=== PATIENT | female | born 1985 | race Asian ===

== ENCOUNTER 2017-04-30 10:48 | Inpatient (IN) | payer BC ==
[2017-04-30 12:00] LABS: ABS Basophils 0.1 10^3/ul (0-0.2); ABS Eosinophils 0.1 10^3/ul (0-0.6); ABS Lymphocytes 1.3 10^3/ul (1.0-4.8); ABS Monocytes 0.7 10^3/ul (0-0.8); ABS Nucleated RBC 0 10^3/ul; Eosinophil % 1.1 % (0-6); Hematocrit 38 % (35-47); Hemoglobin 12.7 g/dl (12.0-16.0); Mean Corpuscular HGB Conc 33 g/dl (31-36); Mean Corpuscular Hemoglobin 32 pg (27-31); Mean Corpuscular Volume 96 fL (80-97); Mean Platelet Volume 10 um3 (7.4-10.4); Nucleated Red Blood Cells % 0; Platelet Count 145 10^3/ul (150-450); Red Blood Count 3.97 10^6/ul (4.0-5.4); Red Cell Distribution Width 14 % (10.5-15); White Blood Count 11.2 10^3/ul (3.5-10.8)
[2017-04-30] MEDS ORDERED: Oxytocin in LR* 20 UNITS/1,000 ML BAG IVPB ONE (12:48)
[2017-04-30] MEDS ORDERED: Glycerin ADULT SUPP PR PRN (13:21)
[2017-04-30] MEDS ORDERED: Acetaminophen TAB* 325 MG PO PRN (13:21)
[2017-04-30] MEDS: Ibuprofen TAB* 600 MG PO PRN ×2 (13:49→20:09)
[2017-04-30] MEDS: Docusate CAP* 100 MG PO SCH ×2 (15:06→20:09)
[2017-04-30] MEDS ORDERED: Ampicillin IV* 2 GM in NS 0.9% 100 ML* 100 ML IVPB ONE (15:15)
[2017-04-30] MEDS ORDERED: Simethicone TAB* 80 MG TAB.CHEW PO SCH (17:30)
[2017-04-30] MEDS: Witch Hazel PAD* JAR TOPICAL PRN (20:10)
[2017-04-30] MEDS: Dibucaine 1% 28.35 GM TUBE PR PRN (20:10)
[2017-05-01] MEDS: Ibuprofen TAB* 600 MG PO PRN ×3 (03:44→20:13)
[2017-05-01 06:52] LABS: ABS Basophils 0 10^3/ul (0-0.2); ABS Eosinophils 0.2 10^3/ul (0-0.6); ABS Lymphocytes 1.8 10^3/ul (1.0-4.8); ABS Monocytes 0.8 10^3/ul (0-0.8); ABS Neutrophils 9.8 10^3/ul (1.5-7.7); ABS Nucleated RBC 0 10^3/ul; Eosinophil % 1.3 % (0-6); Hematocrit 33 % (35-47); Hemoglobin 11.4 g/dl (12.0-16.0); Lymphocyte % 14.4 % (25-47); Mean Corpuscular HGB Conc 35 g/dl (31-36); Mean Corpuscular Hemoglobin 33 pg (27-31); Mean Corpuscular Volume 94 fL (80-97); Mean Platelet Volume 9 um3 (7.4-10.4); Nucleated Red Blood Cells % 0; Platelet Count 103 10^3/ul (150-450); Red Cell Distribution Width 14 % (10.5-15); White Blood Count 12.6 10^3/ul (3.5-10.8)
[2017-05-01] MEDS: Ferrous Gluconate TAB* 324 MG TAB PO SCH ×2 (12:16→22:01)
[2017-05-01] MEDS: Docusate CAP* 100 MG PO SCH ×3 (12:17→23:17)
[2017-05-01] MEDS: Witch Hazel PAD* JAR TOPICAL PRN (15:38)
[2017-05-01] MEDS: Dibucaine 1% 28.35 GM TUBE PR PRN (15:39)
[2017-05-02 06:46] LABS: ABS Basophils 0.1 10^3/ul (0-0.2); ABS Eosinophils 0.1 10^3/ul (0-0.6); ABS Lymphocytes 2.2 10^3/ul (1.0-4.8); ABS Monocytes 0.5 10^3/ul (0-0.8); ABS Neutrophils 7.5 10^3/ul (1.5-7.7); ABS Nucleated RBC 0 10^3/ul; Eosinophil % 1.3 % (0-6); Hematocrit 34 % (35-47); Hemoglobin 11.8 g/dl (12.0-16.0); Lymphocyte % 20.8 % (25-47); Mean Corpuscular HGB Conc 35 g/dl (31-36); Mean Corpuscular Hemoglobin 33 pg (27-31); Mean Corpuscular Volume 95 fL (80-97); Mean Platelet Volume 9 um3 (7.4-10.4); Nucleated Red Blood Cells % 0; Platelet Count 115 10^3/ul (150-450); Red Blood Count 3.62 10^6/ul (4.0-5.4); Red Cell Distribution Width 14 % (10.5-15); White Blood Count 10.4 10^3/ul (3.5-10.8)
[2017-05-02 08:54] VITALS: BP 100/72
[2017-05-02] MEDS: Docusate CAP* 100 MG PO SCH (10:16)
== END 2017-05-02 10:50 | disposition home or self-care (01) | DRG 560 ==
LOC: MCHOBOUT 10:48 → MCHOB 11:28
PROVIDERS: ADMIT Midwife; ATTEND Midwife
PROC: 10E0XZZ Delivery of Products of Conception, External Approach (ICD-10-PCS; principal; 2017-04-30)
PROC: 0KQM0ZZ Repair Perineum Muscle, Open Approach (ICD-10-PCS; 2017-04-30)
DX: O69.81X0 Labor and delivery complicated by cord around neck, without compression, not applicable or unspecified (principal); O70.1 Second degree perineal laceration during delivery; Z3A.40 40 weeks gestation of pregnancy; Z37.0 Single live birth
CPT/HCPCS: 36415; 85025; 86850; 86900; 86901; A9270-GY; J0290

== ENCOUNTER 2017-05-16 20:29 | Day surgery (SDC) | payer BC ==
[2017-05-16] MEDS ORDERED: NS 0.9% 1000 ML* 1,000 ML IV ONE (21:16)
--- NOTE | 2017-05-16 21:56 | RAD ---
Indication: Vaginal bleeding 2 weeks . Comparison: No relevant prior exams available on the [facility] PACS for comparison. Technique: Transabdominal pelvic ultrasound. Report: 11.6 x 7.9 x 9.6 cm anteverted uterus with irregularly thickened heterogeneous echogenicity endometrium at the fundus measuring up to 2.1 cm in thickness with foci of intrinsic vascularity on Doppler concerning for retained products of conception. Trace free fluid in the cul-de-sac. 3.3 x 1.5 x 3.5 cm RIGHT ovary and 2.5 x 1.9 x 3.3 cm LEFT ovary with documented vascular flow on color Doppler are unremarkable. No extraovarian adnexal region lesions evident. IMPRESSION: Findings concerning for retained product of conception.
[2017-05-16 22:07] LABS: ABS Basophils 0 10^3/ul (0-0.2); ABS Eosinophils 0.4 10^3/ul (0-0.6); ABS Lymphocytes 2.3 10^3/ul (1.0-4.8); ABS Monocytes 0.4 10^3/ul (0-0.8); ABS Neutrophils 4.3 10^3/ul (1.5-7.7); ABS Nucleated RBC 0 10^3/ul; Eosinophil % 4.8 % (0-6); Hematocrit 34 % (35-47); Hemoglobin 11.6 g/dl (12.0-16.0); Lymphocyte % 30.7 % (25-47); Mean Corpuscular HGB Conc 34 g/dl (31-36); Mean Corpuscular Hemoglobin 33 pg (27-31); Mean Corpuscular Volume 95 fL (80-97); Mean Platelet Volume 8 um3 (7.4-10.4); Nucleated Red Blood Cells % 0; Platelet Count 182 10^3/ul (150-450); Red Blood Count 3.57 10^6/ul (4.0-5.4); Red Cell Distribution Width 14 % (10.5-15); White Blood Count 7.3 10^3/ul (3.5-10.8)
[2017-05-16 22:19] LABS: INR 0.88 (0.77-1.02)
[2017-05-16 22:21] LABS: EGFR Non-African American 87.4 (>60)
[2017-05-17] MEDS ORDERED: ceFAZolin 2 GM PREMIX (*) 2 GM/50 ML BAG IVPB ONE (00:28)
[2017-05-17] MEDS ORDERED: Silver Nitrate/Potassium Nitr* 1 EA STICK ONE (00:32)
--- NOTE | 2017-05-17 00:32 | ED ---
Sinan Cifuentes Tecjoon, scribbob for Corwin Tao MD on 05/16/17 at 2118 . GI/ HPI - HPI Summary HPI Summary: This patient is a 32 year old female presenting to [facility] accompanied by with a chief complaint of vaginal bleeding since yesterday around 1900. Patient delivered a baby vaginally 2 weeks ago. The pain is described as cramping. The pain is rated 0/10 in severity. Symptoms aggravated by nothing. Symptoms alleviated by nothing. Patient states she has filled 4 pads with fresh blood and clots. Patient additionally reports abd pain. Patient denies fever, chills, dizziness. - History of Current Complaint Chief Complaint: EDVaginalBleeding Time Seen by Provider: 05/16/17 21:07 Stated Complaint: VAGINAL BLEEDING Hx Obtained From: Patient Onset/Duration: Started Days Ago - 1, Still Present Timing: Constant, Lasting Hours Severity: Mild Vaginal Bleeding Description: Bright Red, Clots Number of Pads per Day: 4 Pain Intensity: 0 Location of Pain: Diffuse Pain Characteristics: Cramping Associated Signs and Symptoms: Positive: Negative - fever, chills, dizziness, Other: - abd pain - Allergy/Home Medications Allergies/Adverse Reactions: Allergies Allergy/AdvReac Type Severity Reaction Status Date / Time No Known Allergies Allergy Verified 04/30/17 15:31 PMH/Surg Hx/FS Hx/Imm Hx Previously Healthy: Yes Opthamlomology History: Denies: Hx Legally Blind EENT History: Denies: Hx Deafness Infectious Disease History: No Infectious Disease History: Denies: Traveled Outside the [place] in Last 30 Days - Family History Known Family History: Negative: Hypertension - Social History Lives: With Family Alcohol Use: None Hx Substance Use: No Substance Use Type: Reports: None Hx Tobacco Use: No Smoking Status (MU): Never Smoked Tobacco Review of Systems Negative: Fever, Chills Positive: Abdominal Pain Genitourinary: Other - vaginal bleeding Neurological: Negative - dizziness All Other Systems Reviewed And Are Negative: Yes Physical Exam - Summary Physical Exam Summary: VITAL SIGNS: Reviewed. GENERAL: Patient is a well-developed and nourished female who is lying comfortable in the stretcher. Patient is not in any acute respiratory distress. HEAD AND FACE: No signs of trauma. No ecchymosis, hematomas or skull depressions. No sinus tenderness. EYES: PERRLA, EOMI x 2, No injected conjunctiva, no nystagmus. EARS: Hearing grossly intact. Ear canals and tympanic membranes are within normal limits. MOUTH: Oropharynx within normal limits. NECK: Supple, trachea is midline, no adenopathy, no JVD, no carotid bruit, no c- spine tenderness, neck with full ROM. CHEST: Symmetric, no tenderness at palpation LUNGS: Clear to auscultation bilaterally. No wheezing or crackles. CVS: Regular rate and rhythm, S1 and S2 present, no murmurs or gallops appreciated. ABDOMEN: Soft, non-tender. No signs of distention. No rebound no guarding, and no masses palpated. Bowel sounds are normal. EXTREMITIES: FROM in all major joints, no edema, no cyanosis or clubbing. PELVIC: External genitalia normal. Mild to moderate vaginal bleeding. Cervix is open, about 2 cm posteriorly. Uterus is about 12 weeks NEURO: Alert and oriented x 3. No acute neurological deficits. Speech is normal and follows commands. SKIN: Dry and warm Triage Information Reviewed: Yes Vital Signs On Initial Exam: Initial Vitals Temp Pulse Resp BP Pulse Ox 99.0 F 78 16 122/75 96 05/16/17 20:33 05/16/17 20:33 05/16/17 20:33 05/16/17 20:33 05/16/17 20:33 Vital Signs Reviewed: Yes Diagnostics - Vital Signs Vital Signs Temp Pulse Resp BP Pulse Ox 05/16/17 20:33 99.0 F 78 16 122/75 96 - Laboratory Result Diagrams: 05/16/17 21:57 05/16/17 21:57 Lab Statement: Any lab studies that have been ordered have been reviewed, and results considered in the medical decision making process. - Additional Comments Diagnostic Additional Comments: US Pelvis reveals, per radiologist, IMPRESSION: Findings concerning for retained product of conception. ED physician has reviewed this radiology report. GIGU Course/Dx - Course Course Of Treatment: This patient is a 32 year old female presenting to [facility] accompanied by with a chief complaint of vaginal bleeding since yesterday around 1900. Patient delivered a baby vaginally 2 weeks ago. US Pelvis reveals, per radiologist, IMPRESSION: Findings concerning for retained product of conception. ED physician has reviewed this radiology report. Bloodwork Obtained. Urinalysis Obtained. We discussed patient care with Dr. Mariscal (OBGYN) and they agreed to come see the patient. Patient will be admitted with a diagnosis of bleeding and retained product of conception. The patient is agreeable with this plan. - Diagnoses Provider Diagnoses: bleeding, Retained products of conception - Physician Notifications Instructed by Provider To: Admit As Inpatient - We discussed patient care with Dr. Mariscal (OBGYN) at 2242 and they agreed to come see the patient with regards to admittance Discharge - Discharge Plan Condition: Stable Disposition: ADMITTED TO [facility] Referrals: Bronwyn Brown CNM [Primary Care Provider] - The documentation as recorded by the Sinan posadas Tecjoon accurately reflects the service I personally performed and the decisions made by Aislinn evangelista Abdul, MD.
[2017-05-17] MEDS ORDERED: fentaNYL* 50 MCG/ML 2 ML VIAL (100 MCG VIAL) ONE (00:36)
[2017-05-17] MEDS ORDERED: Chloroprocaine 2%* 20 ML VIAL ONE (00:37)
[2017-05-17] MEDS ORDERED: Lidocaine 2% PF * 5 ML VIAL ONE (00:37)
[2017-05-17] MEDS ORDERED: Propofol* 10 MG/ML 20 ML BTL IV PUSH ONE (00:37)
[2017-05-17] MEDS ORDERED: OXYTOCIN* 10 UNITS/ML 1 ML VIAL ONE (01:10)
[2017-05-17] MEDS ORDERED: Naloxone* 0.4 MG/ML 1 ML VIAL IV PRN (01:30)
[2017-05-17] MEDS ORDERED: Ketorolac INJ* 30 MG/ML 1 ML VIAL IV PRN (01:30)
[2017-05-17] MEDS ORDERED: Ketorolac INJ* 30 MG/ML 1 ML VIAL ONE (01:45)
[2017-05-17 03:01] VITALS: BP 103/67
--- NOTE | 2017-05-18 12:16 | OP ---
DATE OF OPERATION: 05/17/17 [facility] [place] DATE OF : 87 SURGEON: Almaz Mariscal MD. ANESTHESIOLOGIST: Dr. Fraser. ANESTHESIA: Spinal. PRE-OP DIAGNOSIS: Two weeks post- with bleeding and retained placenta fragment. POST-OP DIAGNOSIS: Two weeks post- with bleeding and retained placenta fragment. OPERATIVE PROCEDURE: Suction dilation and curettage with ultrasound guidance. ESTIMATED BLOOD LOSS: 100 cc. URINE OUTPUT: 200 cc. IV FLUIDS: 300 cc lactated Ringer's. MATERIALS TO LAB: Placental fragment. INDICATIONS: This patient was a 32-year-old 1, para 1 at 16 days status post a spontaneous vaginal delivery on April 30. The patient had a delivery complicated by difficulty with placental delivery and cord avulsion requiring manual extraction of the placenta. The patient had a progressive decrease in bleeding over the last 2 weeks; however, last night she had return of heavy bleeding which lasted several hours. Throughout the day it became light again but then tonight it became very heavy and she returned to the emergency department at that time. Ultrasound was significant for a 2.1 cm echogenic area at the fundus of the uterus consistent with likely retained products of conception. She was extensively counselled regarding the findings, and I recommended a dilation and curettage. The patient signed consent. FINDINGS: Small area of apparent placental tissue in the upper fundus of the uterus. Ultrasound during the procedure noted complete removal of this tissue and a thin endometrial lining afterwards. COMPLICATIONS: None. DESCRIPTION OF PROCEDURE: The risks, benefits, and alternatives were described to the patient and informed consent was obtained. The patient was taken to the operating room with IV running where spinal anesthesia was induced and found to be adequate. The patient was prepped and draped in the normal sterile fashion in the high lithotomy position in [facility]. Time out was performed. The bladder was emptied. An abdominal ultrasound was performed initially and the echogenic material was easily visualized. A bivalve speculum was placed in the vagina and a ring forceps was placed on the anterior cervix for retraction. The cervix was already dilated about 2 cm. The uterus then sounded to about 12 cm and the sound was easily visualized on ultrasound. A size 10 suction curette was then prepared and placed through the cervix and into the uterine cavity without difficulty. Again this was done with ultrasound guidance. Suction was activated and all uterine contents were suctioned without difficulty. The suction curette was then removed. A medium banjo curette was then placed into the fundus and all 4 quadrants of the uterine cavity were palpated with the curette and good cry was noted. There was no apparent remaining tissue. The ultrasound also noted no significant remaining tissue at that time. The ring forceps was removed from the cervix. The speculum was then removed. Bimanual massage was performed and the uterus became very firm. Pitocin was also given in the IV. The patient was then returned to the supine position. The patient tolerated the procedure well. Sponge, lap, and needle counts were correct x2. [id number]/[facility] #: [id number] MTDD
== END 2017-05-17 03:12 | disposition home or self-care (01) ==
LOC: ED 20:29 → OR 05-17 00:14
PROVIDERS: ATTEND Obstetrics & Gynecology
DX: O72.2 Delayed and secondary postpartum hemorrhage (principal); N94.89 Other specified conditions associated with female genital organs and menstrual cycle
CPT/HCPCS: 36415; 76856; 80053; 83605; 84702; 85025; 85610; 85730; 86850; 86900; 86901; 88305; 99283; A9270-GY; J0690; J1885; J2400; J2590; J2704; J3010

== ENCOUNTER 2017-07-14 12:18 | Emergency (ER) | payer BC ==
[2017-07-14 13:09] LABS: Hematocrit 38 % (35-47); Hemoglobin 12.9 g/dl (12.0-16.0); Mean Corpuscular HGB Conc 34 g/dl (31-36); Mean Corpuscular Hemoglobin 32 pg (27-31); Mean Corpuscular Volume 93 fL (80-97); Mean Platelet Volume 8.4 um3 (7.4-10.4); Platelet Count 203 10^3/ul (150-450); Red Blood Count 4.09 10^6/ul (4.0-5.4); Red Cell Distribution Width 13 % (10.5-15); White Blood Count 5.7 10^3/ul (3.5-10.8)
[2017-07-14 13:16] LABS: Urine Appearance Clear; Urine Blood Negative (Negative); Urine Color Yellow; Urine Ketones 2+ (Negative); Urine Protein Negative (Negative); Urine Specific Gravity 1.019 (1.010-1.030); Urine Urobilinogen Negative (Negative)
[2017-07-14] MEDS ORDERED: Al Hydrox/Mg Hydrox/Simet LIQ* 30 ML UDC PO ONE (13:37)
[2017-07-14] MEDS ORDERED: Lidocaine 2% VISCOUS* 15 ML UDC PO ONE (13:37)
[2017-07-14] MEDS ORDERED: NS 0.9% 1000 ML* 1,000 ML IV ONE (13:45)
[2017-07-14] MEDS ORDERED: Famotidine TAB* 20 MG PO ONE (15:19)
[2017-07-14 18:21] VITALS: BP 103/60
--- NOTE | 2017-07-16 10:54 | ED ---
Yuliana Cifuentes Julia, scribed for Jose Ortega MD on 07/14/17 at 1324 . Abdominal Pain/Female - HPI Summary HPI Summary: This patient is a 32 year old F presenting to [facility] accompanied by her with a chief complaint of worsening epigstric abdominal pain for the past six days. Patient reports fever, chills, vomiting, and two BM described was loose and watery with onset of symptoms on 07/09/17 that resolved 07/11/17. She is unsure if the there was blood in her vomit. Vomiting has resolved but epigastric pain has persisted, worsening in the evenings. She has not had BM since initial watery stool. Pt reports decrease PO intake over the past couple days. The patient rates the pain 4/10 in severity during the day, and a 7/10 at night. Symptoms aggravated by eating and lying down. Symptoms unrelieved by antacid medication. Patient was sent from [facility] for further evaluation. Patient gave to her first child in April 2017. She had surgery for a retained placenta. - History of Current Complaint Chief Complaint: EDAbdPain Stated Complaint: ABD PAIN-SENT FROM [facility] Hx Obtained From: Patient Onset/Duration: Sudden Onset, Lasting Days, Still Present Timing: Constant Severity Initially: Moderate Severity Currently: Mild Pain Intensity: 4 Pain Scale Used: 0-10 Numeric Location: Epigastric Radiates: No Aggravating Factor(s): Food, Other: - lying down Alleviating Factor(s): Nothing Associated Signs and Symptoms: Positive: Diaphoresis, Decreased Appetite, Nausea , Vomiting, Diarrhea. Negative: Urinary Symptoms Allergies/Adverse Reactions: Allergies Allergy/AdvReac Type Severity Reaction Status Date / Time No Known Allergies Allergy Verified 07/14/17 12:22 PMH/Surg Hx/FS Hx/Imm Hx Respiratory History: Reports: Hx Seasonal Allergies Sensory History: Denies: Hx Legally Blind, Hx Deafness Opthamlomology History: Denies: Hx Legally Blind EENT History: Denies: Hx Deafness - Surgical History Surgery Procedure, Year, and Place: removal of retain placenta, April 2017 - Immunization History Date of Tetanus Vaccine: utd Date of Influenza Vaccine: unk Infectious Disease History: No Infectious Disease History: Denies: Traveled Outside the [place] in Last 30 Days - Family History Known Family History: Negative: Hypertension - Social History Lives: With Family Alcohol Use: None Hx Substance Use: No Substance Use Type: Reports: None Hx Tobacco Use: No Smoking Status (MU): Never Smoked Tobacco Review of Systems Positive: Fever, Chills Negative: Erythema Negative: Sore Throat Negative: Chest Pain Negative: Shortness Of Breath, Cough Positive: Abdominal Pain, Vomiting, Diarrhea, Nausea Negative: dysuria, hematuria Negative: Myalgia, Edema Negative: Rash Neurological: Negative - dizziness All Other Systems Reviewed And Are Negative: Yes Physical Exam - Summary Physical Exam Summary: Constitutional: Well-developed, Well-nourished, Alert. (-) Distressed Skin: Warm, Dry HENT: Normocephalic; Atraumatic Eyes: Conjunctiva normal Neck: Musculoskeletal ROM normal neck. (-) JVD, (-) Stridor, (-) Tracheal deviation Cardio: Rhythm regular, rate normal, Heart sounds normal; Intact distal pulses; The pedal pulses are 2+ and symmetric. Radial pulses are 2+ and symmetric. (-) Murmur Pulmonary/Chest wall: Effort normal. (-) Respiratory distress, (-) Wheezes, (-) Rales Abd: Soft, (+) Epigastric Tenderness, (-) Distension, (-) Guarding, (-) Rebound Musculoskeletal: (-) Edema Lymph: (-) Cervical adenopathy Neuro: Alert, Oriented x3 Psych: Mood and affect Normal Triage Information Reviewed: Yes Vital Signs On Initial Exam: Initial Vitals Temp Pulse Resp BP Pulse Ox 97.3 F 64 15 101/65 98 07/14/17 12:22 07/14/17 12:22 07/14/17 12:22 07/14/17 12:22 07/14/17 12:22 Vital Signs Reviewed: Yes Diagnostics - Vital Signs Vital Signs Temp Pulse Resp BP Pulse Ox 07/14/17 12:22 97.3 F 64 15 101/65 98 - Laboratory Lab Results: Lab Results 07/14/17 07/14/17 Range/Units 13:00 13:00 WBC 5.7 (3.5-10.8) 10^3/ul RBC 4.09 (4.0-5.4) 10^6/ul Hgb 12.9 (12.0-16.0) g/dl Hct 38 (35-47) % MCV 93 (80-97) fL MCH 32 H (27-31) pg MCHC 34 (31-36) g/dl RDW 13 (10.5-15) % Plt Count 203 (150-450) 10^3/ul MPV 8.4 (7.4-10.4) um3 Urine Color Yellow Urine Appearance Clear Urine pH 5.0 (5-9) Ur Specific [place] 1.019 (1.010-1.030) Urine Protein Negative (Negative) Urine Ketones 2+ A (Negative) Urine Blood Negative (Negative) Urine Nitrate Negative (Negative) Urine Bilirubin Negative (Negative) Urine Urobilinogen Negative (Negative) Ur Leukocyte Esterase Negative (Negative) Urine Glucose Negative (Negative) Result Diagrams: 07/14/17 13:00 07/14/17 13:00 Lab Statement: Any lab studies that have been ordered have been reviewed, and results considered in the medical decision making process. Re-Evaluation - Re-Evaluation First Eval Re-Evaluation Time: 17:21 Comment: Pt is tolerating PO. Repeat abd exam is nontender. Second Eval Re-Evaluation Time: 17:38 Comment: Reviewed D/C plan with pt as well as labs. Abdominal Pain Fem Course/Dx - Course Course Of Treatment: This patient is a 32 year old F presenting to [facility] accompanied by her with a chief complaint of worsening epigstric abdominal pain for the past six days. Patient reports fever, chills, vomiting, and two BM described was loose and watery with onset of symptoms on 07/09/17 that resolved 07/11/17. She is unsure if the there was blood in her vomit. Vomiting has resolved but epigastric pain has persisted, worsening in the evenings. She has not had BM since initial watery stool. Pt reports decrease PO intake over the past couple days. The patient rates the pain 4/10 in severity during the day, and a 7/10 at night. Symptoms aggravated by eating and lying down. Symptoms unrelieved by antacid medication. Patient was sent from [facility] for further evaluation. Patient gave to her first child in April 2017. She had surgery for a retained placenta. Pt given Viscous Lidocaine, IV fluids, Pepcid, and Maalox in ED. Pt was encouraged to buy bottle of Maalox to take 3-4 times per day as well as to eat more often. Pt will be D/C with Dx of gastritis and hypoglycemia with f/u with PCP in 3-5 days , and prescriptions for Zofran and Pepcid. Pt understands and is agreeable with this plan. - Diagnoses Provider Diagnoses: Gastritis, Hypoglycemia Discharge - Sign-Out/Discharge Documenting (check all that apply): Discharge - home - Discharge Plan Condition: Stable Disposition: HOME Prescriptions: Famotidine TAB* [Pepcid 20 MG TAB*] 20 mg PO BID #28 tab Ondansetron ODT TAB* [Zofran 4 MG Odt TAB*] 4 mg PO Q8H PRN #10 tab.odt PRN Reason: Nausea/Vomiting Patient Education Materials: Gastritis (ED), Non-diabetic Hypoglycemia (ED) Referrals: [facility] [Outside] - 3 Days Additional Instructions: We encourage you to eat more often. Buy a bottle of Maalox and take it 3-4 times per day. RETURN TO THE EMERGENCY DEPARTMENT FOR CHANGING OR WORSENING SYMPTOMS Consult Consult: At 15:10, pt's medication was discussed with Pharmacist. They state simethicone 20mg twice a day and pepcid are safe with . The documentation as recorded by the Yuliana posadas Julia accurately reflects the service I personally performed and the decisions made by me, Jose Ortega MD.
== END 2017-07-14 18:21 | disposition home or self-care (01) ==
LOC: ED 12:18
DX: K29.70 Gastritis, unspecified, without bleeding (principal); E16.2 Hypoglycemia, unspecified; R61 Generalized hyperhidrosis; Z32.02 Encounter for pregnancy test, result negative
CPT/HCPCS: 36415; 80053; 81003; 84702; 85027; 96360; 99283; A9270-GY

== ENCOUNTER 2019-03-14 20:17 | Inpatient (IN) | payer BC ==
[2019-03-14] MEDS ORDERED: Lactated Ringers 1000 ML Bag* 1,000 ML IV ONE (20:44)
[2019-03-14] MEDS ORDERED: Buffered Lidocaine 1% SYRIN* 1 ML/SYRINGE INTRADERM ONE (20:44)
[2019-03-14] MEDS ORDERED: Lactated Ringers 1000 ML Bag* 1,000 ML IV SCH ×2 (21:00→23:00)
--- NOTE | 2019-03-14 21:02 | HP ---
General Information - Reason for Visit Pt reports contractions that started this morning and have continued to be irregular throughout the day, increasing in intensity and frequency with + bloody show. Pt denies LOF. - General Information Maternal Age: 33 Grav: 1 Para: 0 SAB: 0 IEA: 0 Estimated Due Date: 03/23/19 Determined By: LMP Gestational Age in Weeks/Days: 38.5 Maternal Blood Type and Rh: O Positive - Results this Serology/RPR Result: Non-Reactive Rubella Result: Immune HBsAg Result: Negative HIV Result: Negative GBS Culture Result: Negative Past Medical History Delivery History: Hx Uncomplicated Vaginal Delivery Pertinent Past Medical History: Non-Contributory Pertinent Past Surgical History: See Records - D&E 2018- retained products of conception Pertinent Family History: See Records - high chol, liver CA - Antepartal Records Antepartal Records: Reviewed, Complicated by: - R echogenic foci Review of Systems Constitutional: Uncomfortable CV Complaint: No Respiratory: Shortness of Breath: No Gastrointestinal: No Nausea/Vomiting, Normal Bowel Movement Genitourinary: No Leaking Fluid, Spotting Musculoskeletal: No Epigastric Pain, Back Pain, Contractions Neurological: No Headache, No Visual Changes Movement: Normal Exam Allergies/Adverse Reactions: Allergies No Known Allergies Allergy (Verified 07/14/17 12:22) Vital Signs 03/14/19 20:38 Temperature 97.8 F Pulse Rate 86 Respiratory 16 Rate Blood Pressure 120/76 (mmHg) O2 Sat by Pulse 99 Oximetry - Measurements Height: 5 ft 2.2 in Weight: 138 lb Weight in lbs: 138.730388 Body Mass Index (BMI): 25.0 Pre- Weight: 4.162 oz Weight Gained This : 137.739 lbs and 0.014 ozs - Exam Breast: Breast Exam Deferred CVA: No CVA Tenderness Extremities: No Edema Heart: Normal Rhythm/Heart Sounds HEENT: No Significant Findings Lungs: Clear Bilaterally Rectal: Rectal Exam Deferred Reflexes: DTR 2+ Thyroid: No Thyromegaly - Abdominal Exam Abdomen Exam: Non-Tender, Fundal Height Consistent with Dates - Ultrasound/Biophysical Profile Ultrasound Status: Not Done Targeted Exam Findings Estimated Weight: 7lbs Cervical Exam: 5cm Effacement: 100% Station: 0 Presenting Part: Vertex Membrane Status: Bulging Bleeding/Discharge: Bloody Show EFM Findings - External Monitor Findings Baseline Heart Rate: 130 External Monitor Findings: Accelerations Present, No Pattern of Variable or Late Decelerations, Variability Moderate, Baseline Stable Contractions: Irregular, Moderate, 45-90 Seconds Contraction Frequency: 2-10 Assessment/Plan - Assessment 33 y.o. , 38w5d, early labor, GBS negative, cat I NST - Plan Plan: Admit - Anticipate Vaginal Delivery - Date/Time of Admission Date of Admission: 03/14/19 Time of Admission: 20:30
[2019-03-14] MEDS ORDERED: Lidocaine 2% VISCOUS* 15 ML UDC ONE (22:08)
[2019-03-14 22:14] LABS: Urine Benzodiazepine Screen None Detected (None Detect); Urine Opiates Screen None Detected (None Detect)
[2019-03-14] MEDS ORDERED: Dibucaine 1% 28.35 GM TUBE PR PRN (22:17)
[2019-03-14] MEDS ORDERED: Witch Hazel PAD* JAR TOPICAL PRN (22:17)
[2019-03-14] MEDS ORDERED: Glycerin ADULT SUPP PR PRN (22:17)
--- NOTE | 2019-03-14 22:19 | PROCNOTE ---
[facility] OB: Delivery Note - Delivery A Date of : 03/14/19 Time of : 22:00 Sex: Female Score 1 Minute: 9 Score 5 Minutes: 9 Gestational Age in Weeks and Days at Delivery: 38 Weeks and 5 Days Delivery Method: Spontaneous Vaginal Labor: Spontaneous Amniotic Fluid: Clear Estimated Blood Loss: 200 Anesthesia/Analgesia: None Delivered By: Bronwyn Brown - Nursery Level of Nursery: Regular/Bedside - Perineum Perineal Injury: Perineal Laceration, 1st Degree Perineal Repair: By Delivering Practioner - Events Delivery Events of Note: Precipitous Delivery
[2019-03-14] MEDS: Ibuprofen TAB* 600 MG PO PRN (22:55)
[2019-03-15] MEDS: Ibuprofen TAB* 600 MG PO PRN ×3 (04:48→20:27)
[2019-03-15 06:43] LABS: ABS Eosinophils 0.1 10^3/ul (0-0.6); ABS Lymphocytes 1.5 10^3/ul (1.0-4.8); ABS Monocytes 0.6 10^3/ul (0-0.8); ABS Neutrophils 6.9 10^3/ul (1.5-7.7); Hematocrit 32 % (35-47); Hemoglobin 10.9 g/dL (12.0-16.0); Lymphocyte % 16.6 %; Mean Corpuscular HGB Conc 34 g/dL (31-36); Mean Corpuscular Hemoglobin 32 pg (27-31); Mean Corpuscular Volume 93 fL (80-97); Mean Platelet Volume 8.9 fL (7.4-10.4); Platelet Count 135 10^3/uL (150-450); Red Blood Count 3.45 10^6 /uL (3.70-4.87); Red Cell Distribution Width 13 % (10-15); White Blood Count 9.1 10^3/uL (3.5-10.8)
[2019-03-15] MEDS: Docusate CAP* 100 MG PO SCH ×3 (08:03→20:27)
[2019-03-15] MEDS ORDERED: Simethicone TAB* 80 MG TAB.CHEW PO SCH (08:30)
[2019-03-15] MEDS ORDERED: Ferrous Gluconate TAB* 324 MG TAB PO SCH (09:00)
[2019-03-15] MEDS: Acetaminophen TAB* 325 MG PO PRN ×2 (17:19→21:25)
[2019-03-16] MEDS: Acetaminophen TAB* 325 MG PO PRN (03:23)
[2019-03-16] MEDS: Ibuprofen TAB* 600 MG PO PRN ×2 (03:23→10:25)
[2019-03-16 08:52] VITALS: BP 97/57
[2019-03-16] MEDS: Docusate CAP* 100 MG PO SCH (10:25)
== END 2019-03-16 13:05 | disposition home or self-care (01) | DRG 560 ==
LOC: MCHOBOUT 20:17 → MCHOB 20:44
PROVIDERS: ADMIT Midwife; ATTEND Midwife
PROC: 10E0XZZ Delivery of Products of Conception, External Approach (ICD-10-PCS; principal; 2019-03-14)
PROC: 4A1HXCZ Monitoring of Products of Conception, Cardiac Rate, External Approach (ICD-10-PCS; 2019-03-14)
PROC: 0HQ9XZZ Repair Perineum Skin, External Approach (ICD-10-PCS; 2019-03-14)
DX: O62.3 Precipitate labor (principal); Z37.0 Single live birth; O70.0 First degree perineal laceration during delivery; Z3A.38 38 weeks gestation of pregnancy
CPT/HCPCS: 36415; 80307; 85025; A9270-GY